=== PATIENT | female | born 2000 | race African-American/Black ===

== ENCOUNTER 2024-12-09 12:14 | Emergency (ER) | payer MEDICAID ==
[~2024-12-09] VITALS: Ht 160 cm; Wt 127.0 kg
[2024-12-09 12:27] VITALS: BP 133/76; TEMP 37.1; O2SAT 98
[2024-12-09 12:30] VITALS: PULSE 91; RESP 18; O2SAT 98
[2024-12-09] MEDS ORDERED: NAPR-681 MT (14:31)
== END 2024-12-09 15:18 | disposition home or self-care (01) ==
LOC: ER 12:14
DX: S82.61XA Displaced fracture of lateral malleolus of right fibula, initial encounter for closed fracture (principal); Z79.1 Long term (current) use of non-steroidal anti-inflammatories (NSAID); X50.1XXA Overexertion from prolonged static or awkward postures, initial encounter; Y93.01 Activity, walking, marching and hiking; Y92.89 Other specified places as the place of occurrence of the external cause; Y99.8 Other external cause status
CPT/HCPCS: 73610; 99283; 99284

== ENCOUNTER 2025-01-27 14:18 | Emergency (ER) | payer MEDICARE, MEDICAID ==
[~2025-01-27] VITALS: Ht 175.3 cm; Wt 120.0 kg
[~2025-01-27 14:18] MED LIST: NAPR-681 MT
[2025-01-27 14:27] VITALS: O2SAT 99
[2025-01-27 14:35] VITALS: BP 123/68; PULSE 76; RESP 20; TEMP 36.9; O2SAT 100
[2025-01-27] MEDS: ACETAMINOPHEN 325MG TABLET PO STA (16:14)
[2025-01-27] MEDS: BACITRACIN ZINC OINT UDPKT TOP ONE (16:14)
[2025-01-27] MEDS ORDERED: CEPH500C2 MT (16:52)
[2025-01-27] MEDS ORDERED: NAPR-681 PO (16:52)
[2025-01-27] MEDS ORDERED: SULF1TAB48 MT (16:52)
== END 2025-01-27 17:10 | disposition home or self-care (01) ==
LOC: ER 14:20
DX: L03.115 Cellulitis of right lower limb (principal); I10 Essential (primary) hypertension; Z79.1 Long term (current) use of non-steroidal anti-inflammatories (NSAID)
CPT/HCPCS: 73630; 99283

== ENCOUNTER 2025-03-02 12:27 | Emergency (ER) | payer MEDICARE, MEDICAID ==
[~2025-03-02] VITALS: Ht 167.6 cm; Wt 113.0 kg
[~2025-03-02 12:27] MED LIST changes: +CEPH500C2 MT; +NAPR-681 PO; +SULF1TAB48 MT
[2025-03-02 12:37] VITALS: O2SAT 100
[2025-03-02 15:12] LABS: CHLORIDE 104 mEq/L (98-107); SODIUM 134 mEq/L (136-145)
[2025-03-02 15:13] LABS: CARBON DIOXIDE 25 mEq/L (21-32)
[2025-03-02 15:14] LABS: CALCIUM 9.5 mg/dL (8.7-10.4)
[2025-03-02 15:18] LABS: CREATININE 1.2 mg/dL (0.6-1.0)
[2025-03-02 15:19] LABS: GLUCOSE 86 mg/dL (70-105); UREA NITROGEN BLOOD 14 mg/dL (9-23)
[2025-03-02 15:25] LABS: BASOPHILS % 0.6 % (0.0-2.0); EOSINOPHILS % 3.2 % (0.0-5.0); HEMATOCRIT. 34.1 % (36.0-48.0); HEMOGLOBIN. 11.3 g/dL (12.0-16.0); LYMPHOCYTES % 24.5 % (20.0-50.0); MEAN CORPUSCULAR HEMOGLOBIN 27.5 pg (28.0-32.0); MEAN CORPUSCULAR VOLUME 83.2 fL (81.0-99.0); MONOCYTES % 5.6 % (2.0-8.0); NEUTROPHILS % 66.1 % (40.0-76.0); PLATELET 411 x1000/uL (130-400); RED CELL DISTRIBUTION WIDTH 15.4 % (11.6-14.6); WHITE BLOOD COUNT 8.8 x1000/uL (4.5-11.0)
[2025-03-02] MEDS ORDERED: CEPH500C2 MT (15:40)
[2025-03-02] MEDS ORDERED: BO1 TP (15:44)
[2025-03-02 16:14] VITALS: BP 118/85; PULSE 83; RESP 12; TEMP 37.2; O2SAT 100
== END 2025-03-02 16:18 | disposition home or self-care (01) ==
LOC: ER 12:27
DX: S91.301A Unspecified open wound, right foot, initial encounter (principal); Z79.1 Long term (current) use of non-steroidal anti-inflammatories (NSAID); Z79.899 Other long term (current) drug therapy; X58.XXXA Exposure to other specified factors, initial encounter; Y93.89 Activity, other specified; Y92.89 Other specified places as the place of occurrence of the external cause; Y99.8 Other external cause status
CPT/HCPCS: 36415; 80048; 85025; 93970; 99284